=== PATIENT | female | born 1945 | race Caucasian/White ===

== ENCOUNTER → 2017-11-17 15:26 | Outpatient (CLI) | payer MEDICARE, OTHER ==
[2017-11-17 17:10] LABS: BASOPHILS 0.3 % (0-2); EOSINOPHILS 1.5 % (0-7); HEMATOCRIT 38.2 % (36.0-48.0); HEMOGLOBIN 12.9 g/dL (12-16); IMMATURE GRANULOCYTES 0.2 % (0-5); LYMPHOCYTES 16.7 % (15-50); MCH 29.9 pg (26.0-34.0); MCHC 33.8 g/dL (31.0-37.0); MCV 88.4 fL (80.0-100.0); MEAN PLATELET VOLUME 10.1 fL (7.4-10.4); MONOCYTES 9.9 % (2-11); NEUTROPHILS 71.4 % (40-80); PLATELET COUNT 277 10x3/uL (130-400); RBC 4.32 10x6/uL (4.00-5.40); RDW 13.8 % (11.5-14.5); WBC 9.8 10x3/uL (4.8-10.8)
[2017-11-17 17:11] LABS: ERYTHROCYTE SEDIMENTATION RATE 32 mm/hr (0-30)
== END | disposition home or self-care (01) ==
LOC: D.CT 15:26
PROVIDERS: Internal Medicine Gastroenterology
DX: R10.9 Unspecified abdominal pain (principal); Z87.19 Personal history of other diseases of the digestive system